=== PATIENT | male | born 1940 | race Caucasian/White ===

== ENCOUNTER → 2018-05-16 12:41 | Outpatient (CLI) | payer MEDICARE, BC, SELFPAY ==
[2018-05-16 13:12] LABS: Erythrocyte Sedimentation Rate 3 MM/HR (0-15)
== END ==
PROVIDERS: Visit Provider Family Medicine
DX: R51 Headache (principal)
CPT/HCPCS: 36415; 85651

== ENCOUNTER 2018-10-25 07:56 | Outpatient (CLI) | payer MEDICARE, BC, OTHER, SELFPAY ==
[2018-10-25] VITALS (7 sets, daily range): BP systolic 104–129; BP diastolic 62–86; PULSE 56–60; RESP 16–18; O2SAT 96–100
--- NOTE | 2018-10-25 07:59 | DI.RAD.S_ITS ---
PROCEDURE: PAIN C/T FACET INJ/BLK 1ST L INDICATIONS: SPONDYLOSIS FINDINGS: Fluoroscopic spot filming was performed to verify placement of spinal needles at the C3-C4, C4-C5 level(s), as labeled on the films. Appropriate location(s) of the needle tip(s) was confirmed by injection of iodinated contrast. Dictated by: Link Lozano M.D. on 10/25/2018 at 10:31 Approved by: Link Lozano M.D. on 10/25/2018 at 10:32
[2018-10-25] MEDS: MIDAZOLAM 5 MG/5 ML VIAL IV (09:20)
[2018-10-25] MEDS: IOPAMIDOL 15 ML VIAL 3 ML INJ (09:25)
[2018-10-25] MEDS: BUPIVACAINE 0.5% (PF) VIAL 2 ML INJ (09:26)
[2018-10-25] MEDS: DEXAMETHASONE 10 MG/ML VIAL 20 MG INJ (09:27)
--- NOTE | 2018-10-25 09:37 | PC.NURSE ---
Pt tolerated procedure well. Able to get off table with 2 person minimal assist. Transferred to pre procedure room for continued monitoring with Constanza CARRERA.
--- NOTE | 2018-10-25 09:41 | PM.PROC.1 ---
Procedures Date/Time Date of procedure: 10/25/18 Time of procedure: 09:41 General Procedure description: PREOP DIAGNOSIS 1. FACET ARTHROPATHY 2. AXIAL NECK PAIN POST OP DIAGNOSIS 1. FACET ARTHROPATHY 2. AXIAL NECK PAIN PROCEDURES 1. FLUOROSCOPICALLY GUIDED, CONTRAST-CONTROLLED RIGHT C3/4, C4/5 FACET JOINT INJECTIONS WITH CONSCIOUS SEDATION. PHYSICIAN: Cipriano Musa, DO INDICATIONS Peter is referred by Dr. Ang for treatment of Axial Neck Pain DESCRIPTION OF PROCEDURE Fluoroscopically guided, contrast-controlled right C3/4, C4/5 facet joint injections with conscious sedation. Following denial of allergy and review of potential side effects and complications, including, but not necessarily limited to, infection, allergic reaction, local tissue breakdown, stroke, temporary or permanent nerve injury and paralysis, the patient indicated that the patient understood and agreed to proceed. An informed consent document was signed by the patient, witnessed by a nurse, and placed in the patient's chart. Additionally, other treatment options including medications, modalities, and physical therapy were reviewed with the patient. After review of previous anaesthesic history and IV conscious sedation the patient was deemed safe to proceed with todays procedure with IV conscious sedation as ASA class II designation. Safety time-out was performed to confirm patient ID, procedure to be performed and site of procedure. IV sedation was accomplished with a combination of 3mg of Versed was administered by the RN after DO order, titrated to patient comfort during the course of the procedure while the patient remained responsive to all verbal commands In the prone position, following sterile prep and drape of the cervical spine region, the posterior aspect of the right C3/4, C4/5 facet joints were identified fluoroscopically. The skin was anesthetized via a 25-gauge 1.5-inch needle with 1% lidocaine solution into the corresponding facet joints. At this point, a 25-gauge 2.5-inch spinal needle was atraumatically introduced and advanced under fluoroscopic guidance into the corresponding facet joints. Following negative aspiration, injections of approximately 0.2-cc of Isovue 200 confirmed interarticular placement without vascular uptake. At this point, a total of 1 cc including 0.5 cc or 5 mg of dexamethasone combined with 0.5 cc of 1% lidocaine solution was injected without complication into each of the corresponding facet joints. The procedure tolerated the procedure well without signs or symptoms of complications prior to transfer to the recovery area continued monitoring without incident. The patient was then transferred to the recovery area where they were observed for an appropriate period of time after the injection. The patient reported a VAS score of 7 prior to the procedure and a post-procedure VAS of 0. Total Fluoroscopy Time: 20.5 seconds Total Conscious Sedation Time: 24 min POST OP INSTRUCTIONS They were provided a Pain Log to continue to record their response to the target-specific procedure prior to their follow-up visit with their referring physician. Additionally, specific post-injection care instructions and a contact number to our office were provided if concerns arise regarding possible complications associated with the procedure are suspected. Cipriano Musa DO Complications: none
--- NOTE | 2018-10-25 09:45 | P.PCN_ITS ---
Procedures Date/Time Date of procedure: 10/25/18 Time of procedure: 09:41 General Procedure description: PREOP DIAGNOSIS 1. FACET ARTHROPATHY 2. AXIAL NECK PAIN POST OP DIAGNOSIS 1. FACET ARTHROPATHY 2. AXIAL NECK PAIN PROCEDURES 1. FLUOROSCOPICALLY GUIDED, CONTRAST-CONTROLLED RIGHT C3/4, C4/5 FACET JOINT INJECTIONS WITH CONSCIOUS SEDATION. PHYSICIAN: Cipriano Musa, DO INDICATIONS Peter is referred by Dr. Ang for treatment of Axial Neck Pain DESCRIPTION OF PROCEDURE Fluoroscopically guided, contrast-controlled right C3/4, C4/5 facet joint injections with conscious sedation. Following denial of allergy and review of potential side effects and complications, including, but not necessarily limited to, infection, allergic reaction, local tissue breakdown, stroke, temporary or permanent nerve injury and paralysis, the patient indicated that the patient understood and agreed to proceed. An informed consent document was signed by the patient, witnessed by a nurse, and placed in the patient's chart. Additionally, other treatment options including medications, modalities, and physical therapy were reviewed with the patient. After review of previous anaesthesic history and IV conscious sedation the patie nt was deemed safe to proceed with todays procedure with IV conscious sedation as ASA class II designation. Safety time-out was performed to confirm patient ID, procedure to be performed and site of procedure. IV sedation was accomplished with a combination of 3mg of Versed was administered by the RN after DO order, titrated to patient comfort during the course of the procedure while the patient remained responsive to all verbal commands In the prone position, following sterile prep and drape of the cervical spine region, the posterior aspect of the right C3/4, C4/5 facet joints were identifi ed fluoroscopically. The skin was anesthetized via a 25-gauge 1.5-inch needle with 1% lidocaine solution into the corresponding facet joints. At this point, a 25-gauge 2.5-inch spinal needle was atraumatically introduced and advanced under fluoroscopic guidance into the corresponding facet joints. Following negative aspiration, injections of approximately 0.2-cc of Isovue 200 confirmed interarticular placement without vascular uptake. At this point, a total of 1 cc including 0.5 cc or 5 mg of dexamethasone combined with 0.5 cc of 1% lidocaine solution was injected without complication into each of the corresponding facet joints. The procedure tolerated the procedure well without signs or symptoms of complications prior to transfer to the recovery area continued monitoring without incident. The patient was then transferred to the recovery area where they were observed for an appropriate period of time after the injection. The patient reported a VAS score of 7 prior to the procedure and a post- procedure VAS of 0. Total Fluoroscopy Time: 20.5 seconds Total Conscious Sedation Time: 24 min POST OP INSTRUCTIONS They were provided a Pain Log to continue to record their response to the target-specific procedure prior to their follow-up visit with their referring physician. Additionally, specific post-injection care instructions and a contact number to our office were provided if concerns arise regarding possible complications associated with the procedure are suspected. Cipriano Musa DO Complications: none
--- NOTE | 2018-10-25 10:06 | PC.NURSE ---
0952 rtr from procedure via w/c, transfer self to chair, reports, feeling better and pain free, able to tolerate coffee and cookies. happy and smiling.
--- NOTE | 2018-10-25 10:10 | PC.NURSE ---
strong upper bilateral extremities, distal +cms present, no nausea or vomiting.
--- NOTE | 2018-10-25 16:22 | PC.NURSE ---
0942 rtr from procedure via w/c, transfer self to chair, pain free, tolerated drinking and snacking on cookies.
== END 2018-10-25 10:00 | disposition home or self-care (01) ==
PROVIDERS: PCP Internal Medicine; Visit Provider Physical Medicine & Rehabilitation
DX: M47.812 Spondylosis without myelopathy or radiculopathy, cervical region (principal); M54.2 Cervicalgia
CPT/HCPCS: 64490; 64491; 99152; J1100; J2250

== ENCOUNTER 2019-02-22 07:18 | Outpatient (CLI) | payer MEDICARE, BC, SELFPAY ==
[2019-02-22] VITALS (8 sets, daily range): BP systolic 102–133; BP diastolic 69–80; PULSE 57–63; RESP 14–16; TEMP 36.1; O2SAT 96–100
--- NOTE | 2019-02-22 07:20 | DI.RAD.S_ITS ---
PROCEDURE: PAIN C/T INTERLAMINAR INJECT INDICATIONS: SPONDYLOSIS FINDINGS: Fluoroscopic spot filming was performed to verify placement of spinal needles at the C6-7 level(s), as labeled on the films. Appropriate location(s) of the needle tip(s) was confirmed by injection of iodinated contrast. IMPRESSION: Fluoroscopic imaging for placement as above. Dictated by: Velma Aguiar M.D. on 02/22/2019 at 18:10 Approved by: Velma Aguiar M.D. on 02/22/2019 at 18:11
[2019-02-22] MEDS: MIDAZOLAM 5 MG/5 ML VIAL IV (08:35)
[2019-02-22] MEDS: fentaNYL 100 MCG/2 ML INJ 50 MCG IV (08:35)
[2019-02-22] MEDS: DEXAMETHASONE 10 MG/ML VIAL 30 MG INJ (08:43)
[2019-02-22] MEDS: IOPAMIDOL 15 ML VIAL 3 ML INJ (08:43)
--- NOTE | 2019-02-22 08:53 | PC.NURSE ---
Pt tolerated procedure well. Able to get off table with standby assist. Transferred pt via wheelchair to pre procedure room for continued monitoring with Joycelyn CARRERA.
--- NOTE | 2019-02-22 08:58 | P.PCN_ITS ---
Procedures Date/Time Date of procedure: 02/22/19 Time of procedure: 08:58 General Procedure description: PREOP DIAGNOSIS 1. CERVICAL STENOSIS, 2. CERVICAL HNP WITH UPPER EXTREMITY RADICULAR FEATURES, POST OP DIAGNOSIS 1. CERVICAL STENOSIS, 2. CERVICAL HNP WITH UPPER EXTREMITY RADICULAR FEATURES, PROCEDURES 1. FLUORSCOPICALLY GUIDED CONTRAST CONTROLLED INTERLAMINAR EPIDURAL STEROID INJECTION - C6/7 TL SUE PHYSICIAN: Cipriano Musa, DO INDICATIONS Peter is referred for treatment of Cervical Stenosis s/p ACDF with Upper Extremity Paresthesias. FINDINGS Cervical Stenosis due to disc deterioration and nerve root irritation and nerve root irritation DESCRIPTION OF PROCEDURE Fluoroscopically guided, contrast-controlled C6/7 translaminar epidural steroid injection with conscious sedation. Following review of allergy and review of potential side effects and complications, including, but not necessarily limited to, infection, allergic reaction, local tissue breakdown, temporary as well as permanent nerve injury, stroke, paralysis, and possible , the patient indicated that patient understood and agreed to proceed. An informed consent document was signed by the patient, witnessed by a nurse, and placed in the patient's chart. Additionally, other treatment options including modalities, medications, and physical therapy were reviewed with the patient. After review of previous anaesthesic history and IV conscious sedation the patient was deemed safe to proceed with todays procedure with IV conscious sedation as ASA class II designation. Safety time-out was performed to confirm patient ID, procedure to be performed and site of procedure. IV sedation was accomplished with a combination of 2mg of Versed and 50mcg of Fentanyl administered by the RN after DO order, titrated to patient comfort during the course of the procedure while the patient remained responsive to all verbal commands. In the prone position, following sterile prep and drape of the cervical region, the C6/7 translaminar space was identified fluoroscopically. The skin was anesthetized via a 25-gauge 1.5-inch needle with 1% lidocaine solution. At this point, a 25-gauge, 2.5-inch short bevel spinal needle was atraumatically i ntroduced and advanced under fluoroscopic guidance into epidural space at the C6/7 translaminar space. Depth was confirmed on lateral view. Radiological data, including multiple fluoroscopic views of the cervical spine, reveal a spinal needle at the C6/7 translaminar space. Lateral views then show placement of the needle in the epidural space. Subsequent views show contrast material flowing superiorly and inferiorly in the epidural space. DSA fluoroscopy with live contrast injection, once again, confirmed no vascular or intrathecal uptake. At this point, using loss of resistance technique with saline and air, the epidural space was entered. Following negative aspiration, injection of approximately 1.5 cc of Isovue-200 with live fluoroscopy in the AP view confirmed epidural flow in the epidural space without vascular or intrathecal uptake observed. Subsequently, a test dose of 1 cc of 1% lidocaine solution was injected and patient was observed for two minutes without signs or symptoms of complications, including abdominal pain, shortness of breath, bilateral upper or lower extremity weakness, nausea and vomiting, prior to steroid injection. At this point, 3cc or 30mg of dexamethasone was then injected without incident. The patient tolerated the procedure well without signs or symptoms of complications prior to being transferred to the recovery area for further bridgette toring, The patient was then transferred to the recovery area where they were observed for an appropriate period of time after the injection. The patient reported a VAS score of 6 prior to the procedure and a post-procedure VAS of 0. Total Fluoroscopy Time: 37.0 seconds Total Conscious Time: 24min POST OP INSTRUCTIONS The patient was provided a Pain Log to continue to record their response to the target-specific procedure prior to follow-up visit with the referring provider. Additionally, specific post-injection care instructions and a contact number to our office were provided if concerns arise regarding possible complications associated with the procedure are suspected. Cipriano Musa DO Complications: none
== END 2019-02-22 09:43 | disposition home or self-care (01) ==
LOC: RAD 07:19
PROVIDERS: Visit Provider Physical Medicine & Rehabilitation
DX: M47.812 Spondylosis without myelopathy or radiculopathy, cervical region (principal); M54.12 Radiculopathy, cervical region
CPT/HCPCS: 62321; 99152; J1100; J2250; J3010

== ENCOUNTER 2019-07-17 06:48 | Outpatient (CLI) | payer MEDICARE, BC, SELFPAY ==
[2019-07-17] VITALS (10 sets, daily range): BP systolic 85–125; BP diastolic 73–84; PULSE 49–59; RESP 16; TEMP 36.4; O2SAT 96–100
--- NOTE | 2019-07-17 06:49 | DI.RAD.S_ITS ---
PROCEDURE: PAIN C/T FACET INJ/BLK 1ST L INDICATIONS: SPONDYLOSIS FINDINGS: Fluoroscopic spot filming was performed to verify placement of spinal needles at the C3, C4, C5 level(s), as labeled on the films. Appropriate location(s) of the needle tip(s) was confirmed by injection of iodinated contrast. Dictated by: Link Lozano M.D. on 07/17/2019 at 9:15 Approved by: Link Lozano M.D. on 07/17/2019 at 9:16
[2019-07-17] MEDS: MIDAZOLAM 5 MG/5 ML VIAL IV (08:09)
[2019-07-17] MEDS: IOPAMIDOL 15 ML VIAL 3 ML INJ (08:24)
[2019-07-17] MEDS: BUPIVACAINE 0.5% (PF) VIAL 2 ML INJ (08:25)
--- NOTE | 2019-07-17 08:27 | PC.NURSE ---
ASSISTING PT OFF TABLE AND TRANSPORTING TO POST PROC AREA IN STABLE CONDITION. PASSING RN CARE OF PT OFF TO AHMET Crowder RN.
--- NOTE | 2019-07-17 08:36 | P.PCN_ITS ---
Procedures Date/Time Date of procedure: 07/17/19 Time of procedure: 08:36 General Procedure description: PREOP DIAGNOSIS 1. FACET ARTHROPATHY 2. AXIAL NECK PAIN POST OP DIAGNOSIS 1. FACET ARTHROPATHY 2. AXIAL NECK PAIN PROCEDURES 1. FLUOROSCOPICALLY GUIDED, CONTRAST-CONTROLLED RIGHT C3, C4, C5 MBB. PHYSICIAN: Cipriano Musa, DO INDICATIONS Peter is referred for treatment of Axial Neck Pain DESCRIPTION OF PROCEDURE Fluoroscopically guided, contrast-controlled right C3, C4, C5 Diagnostic Medial Branch Blocks. Following review of allergy and review of potential side effects and complications, including, but not necessarily limited to, infection, allergic reaction, local tissue breakdown, stroke, temporary or permanent nerve injury and paralysis, the patient indicated that the patient understood and agreed to proceed. An informed consent document was signed by the patient, witnessed by a nurse, and placed in the patient's chart. Additionally, other treatment options including medications, modalities, and physical therapy were reviewed with the patient. After review of previous anaesthesic history and IV conscious sedation the patient was deemed safe to proceed with todays procedure with IV conscious sedat ion as ASA class II designation. Safety time-out was performed to confirm patient ID, procedure to be performed and site of procedure. IV sedation was accomplished with 2mg of Versed was administered by the RN after DO order, titrated to patient comfort during the course of the procedure while the patient remained responsive to all verbal commands Time-out was taken to identify the correct patient, procedure and side prior to starting the procedure. Lying in the prone position, the patient was prepped and draped in the usual sterile fashion using Chlorhexaidine scrub and a fenestrated drape. The level was determined under fluoroscopy. The skin was anesthetized via a 25-gauge 1.5- inch needle with 1% lidocaine solution into the corresponding right C3, C4, C5 lateral pillars. At this point, a 22-gauge short bevel spinal needle was atraumatically introduced and advanced under fluoroscopic guidance to the anatomical pillars. Following negative aspiration, injections of approximately 0.1cc of Isovue 200 confirmed interarticular placement without vascular uptake. At this point, a total of 1cc of 0.5% was injected without complication into each of the corresponding medial branch anatomical location. The patient tolerated the procedure well without signs or symptoms of complications prior to transfer to the recovery area continued monitoring without incident. The patient was then transferred to the recovery area where they were observed for an appropriate period of time after the injection. The patient reported a VAS score of 7 prior to the procedure and a post-procedur e VAS of 1. Total Fluoroscopy Time: 14 seconds Total Conscious Sedation Time: 24 min POST OP INSTRUCTIONS They were provided a Pain Log to continue to record their response to the target-specific procedure prior to their follow-up visit with their referring physician. Additionally, specific post-injection care instructions and a contact number to our office were provided if concerns arise regarding possible complications associated with the procedure are suspected. Complications: none
--- NOTE | 2019-07-17 09:32 | PC.NURSE ---
Post procedure discharge note: Patient arrived at 0835. Awake and able to transfer to recliner from w/c independently. No complaints of pain 0/10. Denied any numbness or tingling to lower extremities. Handoff report received fromElizabeth Kaufman RN. Discharge instructions reviewed with good understanding. Discharged to home, w/c to car with .
== END 2019-07-17 09:00 | disposition home or self-care (01) ==
LOC: RAD 06:49
PROVIDERS: Visit Provider Physical Medicine & Rehabilitation
DX: M47.812 Spondylosis without myelopathy or radiculopathy, cervical region (principal); M54.2 Cervicalgia
CPT/HCPCS: 64490; 64491; 99152; J1100; J2250; J3010